=== PATIENT | female | born 1975 | race Asian ===

== ENCOUNTER 2022-11-25 17:47 | Emergency (ER) | payer OTHER ==
[~2022-11-25] VITALS: Ht 165.1 cm; Wt 66.4 kg
[2022-11-25] MEDS ORDERED: POLY119P3 PO (20:19)
[2022-11-25] MEDS ORDERED: HYDR30CR3 TP (20:19)
[2022-11-25] MEDS ORDERED: ACET-2080 PO (20:19)
[2022-11-25] MEDS ORDERED: ANUSHCS PR (20:19)
[2022-11-25 20:28] VITALS: BP 109/68
== END 2022-11-25 20:29 | disposition home or self-care (01) ==
LOC: EMS 17:48
DX: K64.9 Unspecified hemorrhoids (principal); F17.210 Nicotine dependence, cigarettes, uncomplicated; Z98.890 Other specified postprocedural states
CPT/HCPCS: 99282; Z7502

== ENCOUNTER → 2024-06-06 | Emergency (ER) | payer OTHER ==
[~2024-06-06] VITALS: Ht 165.1 cm; Wt 65.9 kg
[~2024-06-06] MED LIST: ACET-2080 PO; ANUSHCS PR; HYDR30CR3 TP; OXCA300T28 PO; POLY119P3 PO
[2024-06-06 10:28] VITALS: TEMP 98.6
[2024-06-06 11:30] LABS: COVID AG,FIA SOURCE NASAL SWAB
[2024-06-06 12:25] LABS: SARS-COV2 (COVID) ANTIGEN,FIA Negative (Negative)
[2024-06-06 12:26] LABS: INFLUENZA TYPE A NEGATIVE FOR TYPE A (NEGATIVE); INFLUENZA TYPE B NEGATIVE FOR TYPE B (NEGATIVE)
[2024-06-06 13:22] VITALS: BP 111/60; PULSE 78; RESP 18; O2SAT 99
== END | disposition home or self-care (01) ==
LOC: EMS 10:26
DX: J06.9 Acute upper respiratory infection, unspecified (principal); F17.210 Nicotine dependence, cigarettes, uncomplicated; Z98.890 Other specified postprocedural states; Z20.822 Contact with and (suspected) exposure to COVID-19
CPT/HCPCS: 87804; 99283

== ENCOUNTER 2024-11-28 20:26 | Emergency (ER) | payer OTHER ==
[~2024-11-28] VITALS: Ht 165.1 cm; Wt 70.5 kg
[~2024-11-28 20:26] MED LIST changes: -ACET-2080 PO; -ANUSHCS PR; -HYDR30CR3 TP; -POLY119P3 PO
[2024-11-28 22:20] VITALS: TEMP 98.105288
[2024-11-28] MEDS: ACETAMINOPHEN 500 MG TABLET PO ONE (23:46)
[2024-11-28] MEDS: LIDOCAINE 5% TRANSDERMAL PATCH TD ONE (23:46)
[2024-11-28] MEDS: KETOROLAC TROMETHAMINE 30 MG/ML VIAL IM ONE (23:46)
[2024-11-29 00:05] VITALS: BP 118/80; PULSE 77; RESP 17; O2SAT 100
[2024-11-29] MEDS ORDERED: ACET-3385 PO (00:26)
[2024-11-29] MEDS ORDERED: IBUP-1506 PO (00:26)
== END 2024-11-29 00:45 | disposition home or self-care (01) ==
LOC: EMS 20:28
DX: M25.561 Pain in right knee (principal); M25.461 Effusion, right knee; F17.210 Nicotine dependence, cigarettes, uncomplicated; Z98.890 Other specified postprocedural states; Z79.899 Other long term (current) drug therapy
CPT/HCPCS: 99283; 73562; 96372; J1885